=== PATIENT | female | born 2000 | race Caucasian/White ===

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

== ENCOUNTER 2022-03-13 21:15 | Emergency (ER) | payer MEDICAID ==
[~2022-03-13] VITALS: Ht 165.1 cm; Wt 77.1 kg
== END 2022-03-13 21:40 | disposition home or self-care (01) ==
LOC: ED 21:15
DX: S61.213A Laceration without foreign body of left middle finger without damage to nail, initial encounter (principal); W26.0XXA Contact with knife, initial encounter; Y93.89 Activity, other specified; Y92.89 Other specified places as the place of occurrence of the external cause; Y99.8 Other external cause status

== ENCOUNTER → 2022-07-23 | Outpatient (CLI) | payer MEDICAID ==
[2022-07-24 05:06] LABS: THYROID PEROXIDASE (TPO) AB <8 IU/mL (0-26)
[2022-07-24 09:07] LABS: RHEUMATOID FACTOR <10.0 IU/mL (<14.0)
[2022-07-24 12:07] LABS: ANTIPARIETAL CELL ANTIBODY 3.7 Units (0.0-20.0)
[2022-07-24 14:07] LABS: ANTI-SMOOTH MUSCLE ANTIBODY 9 Units (0-19)
[2022-07-24 16:07] LABS: ANTI-DSDNA ANTIBODIES 1 IU/mL (0-9); ANTI-RNP ANTIBODIES <0.2 AI (0.0-0.9); ANTISCLERODERMA-70 AB <0.2 AI (0.0-0.9); SJOGREN ANTI-SS-A <0.2 AI (0.0-0.9); SJOREN AB, ANTI-SS-B <0.2 AI (0.0-0.9)
== END | disposition home or self-care (01) ==
LOC: LAB 11:43
PROVIDERS: ATTEND Allergy & Immunology
DX: M35.9 Systemic involvement of connective tissue, unspecified (principal); L95.9 Vasculitis limited to the skin, unspecified; J30.89 Other allergic rhinitis